=== PATIENT | female | born 1960 | race African-American/Black ===

== ENCOUNTER 2018-01-05 06:26 | Emergency (ER) | payer MEDICAID, OTHER ==
[~2018-01-05] VITALS: Ht 177.8 cm; Wt 72.6 kg
--- NOTE | 2018-01-05 06:55 | Emergency Room Report ---
History of Present Illness General Chief Complaint: To Be Triaged Source: Patient Present Illness HPI The patient is status post hip replacement on the left-hand side. She is in pain management. She was given a prescription that she's been unable to fill. She was told by her doctor to come to the emergency department to have the prescription filled. Pain rated 10/10 L hip, some radiation to thigh and back. Constant aching/burning. The prescription is [place] 10/325 #120. The patient surgery was done 2 months ago. No recent trauma. No fevers, chills, NVD, dysuria, headache, numbness. She is depressed that she can't fill the meds as well as having problems post op. 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 Allergies: Coded Allergies: AMOXICILLIN (Verified Allergy, Unknown, 01/05/18) ERYTHROMYCIN BASE (Verified Allergy, Unknown, 01/05/18) Patient History Past Medical History: see triage record Past Surgical History: other - Hip replacement left Social History: Reports: smoking Social History Narrative patient drove herself here Reviewed Nursing Documentation: PMH: Agreed; PSxH: Agreed Review of Systems All Other Systems: negative except mentioned in HPI Physical Exam Vital Signs Date Time Temp Pulse Resp B/P (MAP) Pulse Ox O2 Delivery O2 Flow Rate FiO2 01/05/18 07:08 97.9 85 16 179/102 100 Room Air 97.9 Sp02 EP Interpretation: reviewed, normal General Appearance: well appearing, no apparent distress Head: normocephalic, atraumatic Eyes: bilateral eye normal inspection, bilateral eye PERRL ENT: hearing grossly normal, normal voice, moist mucus membranes Neck: full range of motion, supple Respiratory: no respiratory distress, speaking full sentences Gastrointestinal: normal inspection Genitourinary: no CVA tenderness Musculoskeletal: digits/nails normal, no calf tenderness, pelvis stable, other - Anbulatory but with limp - able to sit and stand. Some decreased ROM due to pain Neurologic: alert, oriented x3, grossly normal Psychiatric: depressed affect, anxious Skin: no rash, other - well healing scar Medical Decision Making Diagnostic Impression: Primary Impression: Exacerbation of chronic left hip pain Additional Impression: Left hip pain ER Course Patient presents with exacerbation of chronic hip pain and inability to fill her medications. There is no acute events necessitating imaging at this time. I offered the patient a pain shot and she states that she does not want a shot. She's given Motrin here. We called [facility] - they only have [place] 5/325. Patient given small Rx for this. Discussed need to speak to her MD regarding pain control. No chronic pain medications taken at this time. Patient stable for outpatient observation and treatment. Last Vital Signs Date Time Temp Pulse Resp B/P (MAP) Pulse Ox O2 Delivery O2 Flow Rate FiO2 01/05/18 08:10 97.9 85 16 175/98 100 Room Air 208.2 Status: improved Disposition: HOME, SELF-CARE Condition: Improved Scripts Ibuprofen* (MOTRIN*) 600 Mg Tablet 600 MG ORAL Q6H PRN for For Pain, #20 TAB Prov: Ramos Osullivan M.D. 01/05/18 Hydrocodone Bit/Acetaminophen 5-325* ([place] 5-325*) 1 Each Tablet 2 TAB ORAL Q6H PRN for For Pain, #16 TAB 0 Refills Prov: Ramos Osullivan M.D. 01/05/18 Ramos Osullivan M.D. Jan 05, 2018 06:54
[2018-01-05 07:21] VITALS: BP 179/102
[2018-01-05] MEDS ORDERED: Bacitracin Oint UD TOPIC ONE (07:30)
[2018-01-05] MEDS ORDERED: NORCO 5-325 TA1 EACH ORAL (08:03)
[2018-01-05] MEDS ORDERED: IBUPROFEN600 MG ORAL (08:04)
[2018-01-05 08:10] VITALS: BP 175/98
== END 2018-01-05 08:11 | disposition home or self-care (01) ==
LOC: EMR 07:50
DX: M25.552 Pain in left hip (principal); Z96.642 Presence of left artificial hip joint; Z88.1 Allergy status to other antibiotic agents
CPT/HCPCS: 99283